=== PATIENT | female | born 1985 | race Caucasian/White ===

== ENCOUNTER 2016-08-30 19:18 | Emergency (ER) | payer SELFPAY ==
[2016-08-30] MEDS ORDERED: CLINDAMYCIN HCL 150 MG CAPSULE PO ONE ×2 (22:05)
[2016-08-30] MEDS ORDERED: OXYCODONE-ACETAMINOPHEN 5-325 MG TABLET PO ONE (22:06)
[2016-08-30] MEDS ORDERED: HYDROCODONE/ACETAMINOPHEN 5-325 MG 6 TAB/DSPK PO PRN (22:06)
--- NOTE | 2016-08-30 22:09 | ER Document Report ---
ED Breast Problem - General Chief Complaint: Breast Problem Stated Complaint: ARM/BREAST PAIN Time Seen by Provider: 08/30/16 21:13 Mode of Arrival: Ambulatory Information source: Patient TRAVEL OUTSIDE OF THE [place] IN LAST 30 DAYS: No - HPI Patient complains to provider of: Redness, Swelling, Tenderness Onset: This morning Onset/Duration: Gradual, Persistent Quality of pain: Achy, Fullness, Pressure Severity: Moderate Pain Level: 3 Discharge description: None Similar symptoms previously: No Recently seen / treated by doctor: No Notes: Patient is a 31-year-old female who presents to the emergency room complaining of left breast tenderness, swelling and erythema, she noted symptoms this morning, she also noted a lymph node swollen in her axilla, she does note a fever 103.7 yesterday, but related this to cold-like symptoms with body aches, chills, fever and stuffy nose, she took Motrin prior to coming to the emergency room which helped with her fever but she continues to have pain, she denies any injury to the breath, no history of similar symptoms previously, she is not breast-feeding - Related Data Allergies/Adverse Reactions: No Known Allergies Allergy (Unverified 06/12/12 15:22) Past Medical History - General Information source: Patient - Social History Smoking Status: Current Every Day Smoker Family History: CAD, CVA, Malignancy Patient has suicidal ideation: No Patient has homicidal ideation: No Pulmonary Medical History: Reports: Hx Bronchitis Renal/ Medical History: Denies: Hx Peritoneal Dialysis Musculoskeltal Medical History: Reports Hx Musculoskeletal Deformity, Reports Hx Musculoskeletal Trauma Traumatic Medical History: Reports: Hx Fractures Past Surgical History: Reports: Hx Orthopedic Surgery, Hx Tonsillectomy - Immunizations Immunizations up to date: Yes Hx Diphtheria, Pertussis, Tetanus Vaccination: Yes Review of Systems - Review of Systems Constitutional: No symptoms reported EENT: No symptoms reported Cardiovascular: No symptoms reported Respiratory: No symptoms reported Gastrointestinal: No symptoms reported Genitourinary: No symptoms reported Female Genitourinary: No symptoms reported Musculoskeletal: No symptoms reported Skin: See HPI Hematologic/Lymphatic: No symptoms reported Neurological/Psychological: No symptoms reported -: Yes All other systems reviewed and negative Physical Exam - Vital signs Vitals: Temp Pulse Resp BP Pulse Ox 98.3 F 92 18 141/80 H 99 08/30/16 19:33 08/30/16 19:33 08/30/16 19:33 08/30/16 19:33 08/30/16 19:33 - Notes Notes: - General General appearance: Appears well, Alert In distress: None - HEENT Head: Normocephalic, Atraumatic Eyes: Normal Conjunctiva: Normal Extraocular movements intact: Yes Eyelashes: Normal Pupils: PERRL - Respiratory Respiratory status: No respiratory distress - Cardiovascular Rhythm: Regular - Abdominal Inspection: Normal - Back Back: Normal - Extremities General upper extremity: Normal inspection General lower extremity: Normal inspection - Neurological Neuro grossly intact: Yes Orientation: AAOx4 [place] Coma Scale Eye Opening: Spontaneous [place] Coma Scale Verbal: Oriented [place] Coma Scale Motor: Obeys Commands [place] Coma Scale Total: 15 - Psychological Associated symptoms: Normal affect, Normal mood - Skin Skin Temperature: Warm Skin Moisture: Dry Skin Color: Normal Left breast with tenderness and erythema laterally, swollen tender lymph nodes in axilla, no discrete abscess, fluctuance, drainage Course - Re-evaluation Re-evalutation: 08/31/16 00:26 patient was started on antibiotics for possible early breast abscess versus mastitis, advised to apply warm compresses, follow-up with a primary care provider or return if symptoms worsen, patient acknowledges understanding and agreement with this plan - Vital Signs Vital signs: Temp Pulse Resp BP Pulse Ox 98.3 F 92 18 141/80 H 99 08/30/16 19:33 08/30/16 19:33 08/30/16 19:33 08/30/16 19:33 08/30/16 19:33 Discharge - Discharge Clinical Impression: Mastitis Condition: Stable Disposition: HOME, SELF-CARE Instructions: Mastitis ([facility]) Additional Instructions: Follow up with your primary care provider in one to 2 days. Return to the emergency room immediately if symptoms worsen or any additional concerns. Prescriptions: Clindamycin HCl [Cleocin 150 mg Capsule] 450 mg PO Q6 10 Days Oxycodone HCl/Acetaminophen [Percocet 5-325 mg Tablet] 1 - 2 tab PO ASDIR PRN # 15 tablet PRN Reason: Forms: Smoking Cessation Education
[2016-08-30 22:49] VITALS: BP 125/70
== END 2016-08-30 22:35 | disposition home or self-care (01) ==
LOC: ER 19:18
DX: N61.0 Mastitis without abscess (principal); N64.4 Mastodynia; R50.9 Fever, unspecified; F17.200 Nicotine dependence, unspecified, uncomplicated
CPT/HCPCS: 99283

== ENCOUNTER 2017-07-21 05:19 | Emergency (ER) | payer SELFPAY ==
[2017-07-21] MEDS ORDERED: ONDANSETRON HCL INJ/PF 4 MG/2 ML SDV IV ONE (06:21)
[2017-07-21] MEDS ORDERED: NORMAL SALINE 1000 ML 1,000 ML IV ONE (06:21)
[2017-07-21] MEDS ORDERED: DIPHENHYDRAMINE HCL 50 MG/ML VIAL IV ONE (06:21)
[2017-07-21] MEDS ORDERED: KETOROLAC TROMETHAMINE INJ/PF 30 MG/1 ML SDV IV ONE (06:21)
--- NOTE | 2017-07-21 08:20 | ER Document Report ---
ED General - General Chief Complaint: Stiff Neck Stated Complaint: NECK PAIN, FINGERS TINGLING Time Seen by Provider: 07/21/17 06:10 TRAVEL OUTSIDE OF THE [place] IN LAST 30 DAYS: No - HPI Patient complains to provider of: Neck pain Notes: Patient coming in for evaluation of neck pain. Patient states has history of torticollis in the past denies being on any psychiatric medications patient states this normally happens when she "sleeps on the neck wrong". Patient resting company upon my evaluation she is looking to the left with patient pointing to the right sternocleidomastoid muscle as the area of her right-sided neck pain. Denies any fevers chills nausea vomiting denies any other issues denies any past medical - Related Data Allergies/Adverse Reactions: No Known Allergies Allergy (Unverified 06/12/12 15:22) Past Medical History - Social History Smoking Status: Never Smoker Chew tobacco use (# tins/day): No Frequency of alcohol use: None Drug Abuse: None Family History: CAD, CVA, Malignancy Patient has suicidal ideation: No Patient has homicidal ideation: No Pulmonary Medical History: Reports: Hx Bronchitis Renal/ Medical History: Denies: Hx Peritoneal Dialysis Musculoskeltal Medical History: Reports Hx Musculoskeletal Deformity, Reports Hx Musculoskeletal Trauma Traumatic Medical History: Reports: Hx Fractures Past Surgical History: Reports: Hx Orthopedic Surgery, Hx Tonsillectomy - Immunizations Immunizations up to date: Yes Hx Diphtheria, Pertussis, Tetanus Vaccination: Yes Review of Systems - Review of Systems Constitutional: No symptoms reported EENT: Other - Neck pain Cardiovascular: No symptoms reported Respiratory: No symptoms reported Gastrointestinal: No symptoms reported Genitourinary: No symptoms reported Female Genitourinary: No symptoms reported Musculoskeletal: No symptoms reported Skin: No symptoms reported Hematologic/Lymphatic: No symptoms reported Neurological/Psychological: No symptoms reported -: Yes All other systems reviewed and negative Physical Exam - Vital signs Vitals: Temp Pulse Resp BP Pulse Ox 97.8 F 82 17 130/75 H 98 07/21/17 05:24 07/21/17 05:24 07/21/17 05:24 07/21/17 05:24 07/21/17 05:24 Interpretation: Normal - General General appearance: Appears well, Alert - HEENT Head: Normocephalic, Atraumatic Eyes: Normal Pupils: PERRL Neck: Other - Patient has tenderness to the sternocleidomastoid muscle on the right side. Cannot palpate any spasming of the left however patient is looking towards the left - Respiratory Respiratory status: No respiratory distress Chest status: Nontender Breath sounds: Normal Chest palpation: Normal - Cardiovascular Rhythm: Regular Heart sounds: Normal auscultation Murmur: No - Abdominal Inspection: Normal Distension: No distension Bowel sounds: Normal Tenderness: Nontender Organomegaly: No organomegaly - Back Back: Normal, Nontender - Extremities General upper extremity: Normal inspection, Nontender, Normal color, Normal ROM , Normal temperature General lower extremity: Normal inspection, Nontender, Normal color, Normal ROM , Normal temperature, Normal weight bearing. No: Vikash's sign - Neurological Neuro grossly intact: Yes Cognition: Normal Orientation: AAOx4 [place] Coma Scale Eye Opening: Spontaneous [place] Coma Scale Verbal: Oriented [place] Coma Scale Motor: Obeys Commands [place] Coma Scale Total: 15 Speech: Normal Motor strength normal: LUE, RUE, LLE, RLE Sensory: Normal - Psychological Associated symptoms: Normal affect, Normal mood - Skin Skin Temperature: Warm Skin Moisture: Dry Skin Color: Normal Course - Re-evaluation Re-evalutation: 07/21/17 13:16 Patient was given ketorolac and Benadryl upon reevaluation patient has increased range of motion is no longer just looking to the left. More likely patient has underlying torticollis for unclear etiology. Patient will be given prescription for Valium to take as needed at home. Patient voiced understanding of medication side effects and will be discharged home - Vital Signs Vital signs: Temp Pulse Resp BP Pulse Ox 98.5 F 74 19 108/57 L 99 07/21/17 08:36 07/21/17 08:36 07/21/17 08:36 07/21/17 08:36 07/21/17 08:36 Discharge - Discharge Clinical Impression: Torticollis Condition: Good Disposition: HOME, SELF-CARE Instructions: Torticollis ([facility]) Additional Instructions: Continue take Tylenol Motrin for pain control. May take Valium as prescribed return to ER symptoms worsen. I would also recommend placing warm packs and ice packs on the neck to aid with muscle pain relief Prescriptions: Diazepam [Valium 2 mg Tablet] 2 mg PO Q6HP PRN #15 tablet PRN Reason: Forms: Return to Work
[2017-07-21 08:39] VITALS: BP 108/57
== END 2017-07-21 08:39 | disposition home or self-care (01) ==
LOC: ER 05:19
DX: M43.6 Torticollis (principal)
CPT/HCPCS: 99283; 96361; 96374; 96375; J1200; J1885; J2405; J7030

== ENCOUNTER 2017-09-01 08:49 | Emergency (ER) | payer OTHER ==
[2017-09-01 08:56] VITALS: BP 144/83
[2017-09-01] MEDS ORDERED: DIAZEPAM 2 MG TABLET PO ONE (09:38)
[2017-09-01] MEDS ORDERED: LIDOCAINE 5% (700 MG) TRANSDERMAL ADH..PATCH TP ONE (09:38)
--- NOTE | 2017-09-01 09:39 | ER Document Report ---
HPI - HPI Patient complains to provider of: Neck, back pain Onset: This morning Onset/Duration: Gradual Quality of pain: Sharp Pain Level: 3 Context: Patient states she has a history of torticollis and reports that she woke up with right upper back and neck pain. Patient denies any injury. Patient states she typically gets 1-2 episodes similar to this a year. Patient denies any headache or fever. Associated Symptoms: Other - Neck, upper back pain Exacerbated by: Movement Relieved by: Denies Similar symptoms previously: Yes Recently seen / treated by doctor: No - ROS ROS below otherwise negative: Yes Systems Reviewed and Negative: Yes All other systems reviewed and negative - CONSTITUTIONAL Constitutional: DENIES: Fever, Chills - NEURO Neurology: DENIES: Headache, Weakness - CARDIOVASCULAR Cardiovascular: DENIES: Chest pain - REPRODUCTIVE Reproductive: DENIES: : - MUSCULOSKELETAL Musculoskeletal: REPORTS: Back Pain, Neck Pain. DENIES: Extremity pain - DERM Skin Color: Normal Skin Problems: None Past Medical History - General Information source: Patient - Social History Smoking Status: Never Smoker Frequency of alcohol use: None Drug Abuse: None Occupation: EMS Lives with: Family Family History: CAD, CVA, Malignancy - Medical History Medical History: Negative Pulmonary Medical History: Reports: Hx Bronchitis Renal/ Medical History: Denies: Hx Peritoneal Dialysis Musculoskeltal Medical History: Reports Hx Musculoskeletal Deformity, Reports Hx Musculoskeletal Trauma Traumatic Medical History: Reports: Hx Fractures Past Surgical History: Reports: Hx Orthopedic Surgery, Hx Tonsillectomy - Immunizations Immunizations up to date: Yes Hx Diphtheria, Pertussis, Tetanus Vaccination: Yes Vertical Provider Document - CONSTITUTIONAL Agree With Documented VS: Yes Exam Limitations: No Limitations General Appearance: WD/WN, No Apparent Distress - INFECTION CONTROL TRAVEL OUTSIDE OF THE [place] IN LAST 30 DAYS: No - HEENT HEENT: Atraumatic, Normal ENT Exam, Normocephalic. negative: Pharyngeal Exudate , Pharyngeal Tenderness, Pharyngeal Erythema, Tympanic Membrane Red, Tympanic Membrane Bulging - NECK Neck: Other - Right sternocleidomastoid muscle tenderness, neck tenderness increases with right lateral rotation. negative: Lymphadenopathy-Left, Lymphadenopathy-Right Notes: No meningismus - RESPIRATORY Respiratory: Breath Sounds Normal, No Respiratory Distress - CARDIOVASCULAR Cardiovascular: Regular Rate, Regular Rhythm - BACK Back: Abnormal Inspection - Right upper trapezius muscle tenderness with spasm - MUSCULOSKELETAL/EXTREMETIES Musculoskeletal/Extremeties: JOSH FERGUSON - NEURO Level of Consciousness: Awake, Alert, Appropriate Motor/Sensory: No Motor Deficit - DERM Integumentary: Warm, Dry, No Rash Course - Re-evaluation Re-evalutation: 09/01/17 09:35 Controlled substance database reviewed - Vital Signs Vital signs: Temp Pulse Resp BP Pulse Ox 98.2 F 93 18 144/83 H 97 09/01/17 08:54 09/01/17 08:54 09/01/17 08:54 09/01/17 08:54 09/01/17 08:54 Discharge - Discharge Clinical Impression: Trapezius muscle spasm Condition: Stable Disposition: HOME, SELF-CARE Instructions: Muscle Relaxers ([facility]), Muscle Strain ([facility]), Warm Packs ([facility]) Additional Instructions: Return immediately for any new or worsening symptoms Followup with your primary care provider, call tomorrow to make a followup appointment Take your diclofenac at home as prescribed Prescriptions: Diazepam [Valium 2 mg Tablet] 2 mg PO Q6HP PRN #15 tablet PRN Reason: Forms: Return to Work Referrals: [facility] [Provider Group] - Follow up as needed [facility] [Provider Group] - Follow up as needed
== END 2017-09-01 09:48 | disposition home or self-care (01) ==
LOC: ER 08:49
DX: M62.830 Muscle spasm of back (principal); M54.2 Cervicalgia; M54.89 Other dorsalgia
CPT/HCPCS: 99283; J3490